=== PATIENT | female | born 1960 | race African-American/Black ===

== ENCOUNTER 2019-09-03 19:07 | Emergency (ER) | payer MEDICAID ==
[~2019-09-03] VITALS: Ht 165.1 cm; Wt 82.0 kg
[2019-09-03] MEDS ORDERED: IBUPROFEN 600MG TABLET PO STA (20:57)
[2019-09-03] MEDS ORDERED: HYDROCODONE/ACETAMINOPHEN 5/325MG TABLET PO STA (21:00)
[2019-09-03 22:42] VITALS: BP 151/110
== END 2019-09-03 22:45 | disposition home or self-care (01) ==
LOC: ER 19:07
DX: S42.92XA Fracture of left shoulder girdle, part unspecified, initial encounter for closed fracture (principal); W01.0XXA Fall on same level from slipping, tripping and stumbling without subsequent striking against object, initial encounter; Y93.89 Activity, other specified; Y92.89 Other specified places as the place of occurrence of the external cause; Y99.8 Other external cause status
CPT/HCPCS: 73030; 99283